=== PATIENT | male | born 1950 | race Caucasian/White ===

== ENCOUNTER 2021-05-05 15:51 | Emergency (ER) | payer MEDICARE ==
--- NOTE | 2021-05-05 16:51 | EDM.PDOC ---
ED HPI GENERAL MEDICAL PROBLEM - General Chief Complaint: General Stated Complaint: FISH HOOK Time Seen by Provider: 05/05/21 16:21 Source of Information: Reports: Patient History Limitations: Reports: No Limitations - History of Present Illness INITIAL COMMENTS - FREE TEXT/NARRATIVE: fish hook injury to left thumb occurred an hour ago Duration: Hour(s): (1) - Related Data Allergies Allergy/AdvReac Type Severity Reaction Status Date / Time Penicillins Allergy Hives Verified 05/05/21 16:17 Home Meds: Home Meds Clindamycin HCl 300 mg PO TID #15 capsule 05/05/21 [Rx] Sertraline [Zoloft] 25 mg PO DAILY 05/05/21 [History] Simvastatin [Zocor] 40 mg PO DAILY 05/05/21 [History] atenoloL [Atenolol] 10 mg PO BID 05/05/21 [History] Past Medical History - Past Surgical History Cardiovascular Surgical History: Reports: Cardiac Ablation Social & Family History - Family History Family Medical History: No Pertinent Family History - Tobacco Use Tobacco Use Status *Q: Never Tobacco User - Caffeine Use Caffeine Use: Reports: Coffee - Alcohol Use Days Per Week of Alcohol Use: 1 Number of Drinks Per Day: 2 Total Drinks Per Week: 2 - Recreational Drug Use Recreational Drug Use: No ED ROS GENERAL - Review of Systems Review Of Systems: See Below Constitutional: Reports: No Symptoms HEENT: Reports: No Symptoms Respiratory: Reports: No Symptoms Cardiovascular: Reports: No Symptoms GI/Abdominal: Reports: No Symptoms Musculoskeletal: Reports: No Symptoms Skin: Reports: No Symptoms Neurological: Reports: No Symptoms ED EXAM, GENERAL - Physical Exam Exam: See Below Exam Limited By: No Limitations General Appearance: Alert, WD/WN, No Apparent Distress Eye Exam: Bilateral Eye: EOMI Head: Atraumatic Respiratory/Chest: No Respiratory Distress Cardiovascular: Normal Peripheral Pulses GI/Abdominal: Normal Bowel Sounds, Soft, Non-Tender Neurological: Alert, Oriented, No Motor/Sensory Deficits Skin Exam: Other (fish hook to the left thumb) Course - Vital Signs Last Recorded V/S: Last Vital Signs Temp 37.2 C 05/05/21 16:29 Pulse 74 05/05/21 16:29 Resp 18 05/05/21 16:29 BP 117/75 05/05/21 16:29 Pulse Ox 97 05/05/21 16:29 - Re-Assessments/Exams Free Text/Narrative Re-Assessment/Exam: tetanus was up to date fish hook was removed without complication oral abx was prescribed Departure - Departure Time of Disposition: 16:52 Disposition: Home, Self-Care 01 Condition: Good Clinical Impression: [place] injury to finger - Discharge Information *PRESCRIPTION DRUG MONITORING PROGRAM REVIEWED*: Not Applicable *COPY OF PRESCRIPTION DRUG MONITORING REPORT IN PATIENT SAI: Not Applicable Prescriptions: Clindamycin HCl 300 mg PO TID #15 capsule Instructions: Skin Foreign Body Referrals: PCP,None [Primary Care Provider] - Forms: ED Department Discharge Additional Instructions: - take oral antibiotics as prescribed - keep dressing clean and dry - apply pressure if any bleeding - tylenol for pain Sepsis Event Note (ED) - Evaluation Sepsis Screening Result: No Definite Risk - Focused Exam Vital Signs: Vital Signs Temp Pulse Resp BP Pulse Ox 05/05/21 16:29 37.2 C 74 18 117/75 97 05/05/21 15:55 37.2 C 74 18 117/75 97 - Problem List & Annotations (1) [place] injury to finger SNOMED Code(s): 61895901 Code(s): S69.90XA - UNSP INJURY OF UNSP WRIST, HAND AND FINGER(S), INIT ENCNTR Status: Acute Priority: Low Current Visit: Yes Qualifiers: Encounter type: initial encounter Laterality: left Qualified Code(s): S69.92XA - Unspecified injury of left wrist, hand and finger(s), initial encounter - Problem List Review Problem List Initiated/Reviewed/Updated: Yes - Assessment/Plan Plan: - take oral antibiotics as prescribed - keep dressing clean and dry - apply pressure if any bleeding - tylenol for pain
== END 2021-05-05 16:55 | disposition home or self-care (01) ==
LOC: LB.ED 15:51
DX: S60.352A Superficial foreign body of left thumb, initial encounter (principal); Z88.0 Allergy status to penicillin; Z79.899 Other long term (current) drug therapy; W45.8XXA Other foreign body or object entering through skin, initial encounter
CPT/HCPCS: 99283